=== PATIENT | female | born 1970 | race Caucasian/White ===

== ENCOUNTER 2025-08-31 19:13 | Inpatient (IN) ==
[2025-08-31 19:59] LABS: Alanine Aminotransferase 59.0 U/L (7-52); Albumin Globulin Ratio 1.5 (0.9-2); Albumin Level 4.1 gm/dl (3.4-5.0); Alkaline Phosphatase 128.0 U/L (34-104); Anion Gap 9.0 (3-11); Bilirubin,Total 0.5 mg/dl (0.2-1.0); Blood Urea Nitrogen 13.0 mg/dl (6-23); Calcium 8.8 mg/dl (8.6-10.3); Carbon Dioxide 23.0 mmol/L (21-32); Chloride 100.0 mmol/L (98-107); Creatinine Clr Calc Pharmacy 75.4 ml/min; Globulin 2.7 gm/dl (2.5-4.0); Glucose 98.0 mg/dl (70-99(Fasting)); Potassium 3.7 mmol/L (3.5-5.1); Sodium 132.0 mmol/L (136-145); Total Protein 6.8 gm/dl (6.0-8.3)
[2025-08-31 20:15] LABS: INR 1.1 (0.9-1.1); Partial Thromboplastin Time 29 Seconds (21-31); Prothrombin Time 11.5 Seconds (9.0-12.0)
[2025-08-31 20:22] LABS: Hematocrit (blood only) 25.8 % (37.0-47.0); Hemoglobin 9.0 g/dl (12.0-16.0); Mean Corpuscular Hemoglobin 29.5 pg (25.0-34.0); Mean Corpuscular Volume 84.6 fL (80.0-100.0); Platelet Count 334 K/uL (130-400); RDW Standard Deviation 55.7 fL (36.4-46.3); Red Blood Count 3.05 M/uL (4.20-5.40); White Blood Count 287.12 K/ul (4.8-10.8)
--- NOTE | 2025-08-31 20:23 | XRay Report ---
Chest radiograph, one view History: Chest pain Comparison: None Findings: Single AP view of the chest performed. No focal consolidation or pleural effusion. No pneumothorax. The cardiomediastinal silhouette is within normal limits. Normal pulmonary vascularity. No evidence for lymphadenopathy. No visualized bony or soft tissue abnormality. Impression: Normal chest radiograph Electronically signed by Sanchez Azar 08-31-2025 8:23 PM
[2025-08-31] MEDS: OPTIRAY 320 125ml IV ONE (20:42)
--- NOTE | 2025-08-31 22:26 | CT Scan Report ---
Exam(s): CTA CHEST EXAM: CT Angiography Chest With Intravenous Contrast CLINICAL HISTORY: ro PE. TECHNIQUE: Axial computed tomographic angiography images of the chest with intravenous contrast. CTDI is 29 mGy and DLP is 667.76 mGy-cm. Automated exposure control was utilized for the study. A dose lowering technique was utilized adhering to the principles of ALARA. 3D and MIP reconstructed images were created and reviewed. COMPARISON: CXR 08-31-2025. FINDINGS: Pulmonary arteries: No pulmonary embolism. Aorta: No thoracic aortic aneurysm or dissection. Lungs: Small peripheral infiltrate in the basilar left lower lobe. Minimal bilateral dependent atelectasis. Pleural space: No pleural effusion. No pneumothorax. Heart: No cardiomegaly. No pericardial effusion. No evidence of RV dysfunction. Bones/joints: No acute fracture. Postoperative changes of the lower cervical spine. Degenerative changes of the thoracic spine. Soft tissues: Unremarkable. Lymph nodes: Unremarkable. No enlarged lymph nodes. Abdomen: Small hiatal hernia. Gastric and small bowel postsurgical changes. Splenomegaly 15.6 cm length. IMPRESSION: No pulmonary embolism. Small peripheral infiltrate in the basilar left lower lobe. Small hiatal hernia. Splenomegaly. Electronically signed by: Alexis Douglass M.D. 08/31/25 22:25 PM
[2025-08-31] MEDS: AZITHROMYCIN 250 MG TAB PO ONE (22:57)
[2025-08-31] MEDS: cefTRIAXone SODIUM 2,000 MG/50 ML BAG IV STA (22:58)
--- NOTE | 2025-08-31 23:45 | History & Physical Report ---
Date of Service August 31, 2025 Assessment & Plan (1) Chest pain: (2) Leukocytosis: (3) Depression: Plan 55 yo female presenting with central chest discomfort that started earlier this evening. Troponin is unremarkable. EKG with no acute ischemic changes #Chest pain - EKG with no acute ischemic changes. Troponin unremarkable. No reproducible chest pain -Telemetry monitoring -Trend Troponin #Leukocytosis - elevated WBC count = 287.12. Per discussion with lab, differential mostly reveals immature granulocytes. Preliminary differential reveals 6 promyelocytes, 10 myelocytes, 9 metamyelocytes and 3 blasts. This will not be formally reviewed and validated until tomorrow. Case was discussed with Hematology - agreeable to admission here overnight pending pathology review -Admit to medical with telemetry -Awaiting formal pathology review of differential -Hematology consultation appreciated -Repeat CBC with differential in AM #Tooth infection -Continue Amoxicillin -Tylenol PRN -Ibuprofen PRN Lovenox for DVT prophylaxis Full Code History of Present Illness Chief Complaint: chest pain Primary Care Provider: NO PCP Caryl Blanton is a 55yo female with history of Depression/Anxiety presenting with left sided chest pain. Patient was at work this evening. Around 18:00 she developed acute left sided chest discomfort which was fairly severe in nature. No associated diaphoresis, shortness of breath, dizziness. She called her son and decided to come to the ER for further evaluation. Patient had a tooth break off several weeks ago. She is currently on Amoxicillin, Ibuprofen and Naproxen and planning to have the tooth extracted next week Patient has lost 7-14 pounds unintentionally during the last several weeks - thought due to decreased oral intake from her broken tooth. No fever, chills, night sweats No nausea, vomiting, abdominal pain She does have some easy bruising reported, possibly since being on the amoxicillin. She had a large box drop on her right arm several weeks ago and has a large hematoma from that which she reports is improving. No additional complaints Allergies Allergy/AdvReac Type Severity Reaction Status Date / Time tuberculin, purified protein Allergy SWELLING Verified 08/31/25 20:24 deriva Home Medications Medication Instructions Recorded Confirmed Type acetaminophen 500 mg tablet 1,000 mg PO Q8H PRN Pain ##0 03/21/10 08/31/25 History naproxen sodium 220 mg tablet 220 mg PO Q8H PRN Pain ##0 02/03/11 08/31/25 History (Aleve) amoxicillin 500 mg capsule 500 mg PO TID 08/31/25 08/31/25 History calcium carbonate (Calcium 600) 600 mg PO DAILY 08/31/25 08/31/25 History multivitamin 1 tab PO DAILY 08/31/25 08/31/25 History Past Med/Surg History Problem List Leukocytosis (Acute) Chest pain (Acute) Medical History Depression ADHD Surgical History S/P cervical spinal fusion History of gastric bypass Social History Smoking Status: Never smoker Preferred Language: Japanese Feels Safe at Home: Yes Review of Systems Review of Systems: All systems reviewed & are unremarkable except as noted in HPI & below Physical Exam Physical Exam: General: patient resting comfortably, NAD, non-toxic in appearance, AA&O x 4 Skin: warm, dry, intact, no rashes or lesions, large bruise LUE HEENT: NC/AT, PERRL, EOMI, anicteric sclera, conjunctiva without injection, external ear normal to inspection and nontender, nares patent, moist mucus membranes, dentition intact, no oropharyngeal lesions, neck supple, trachea midline, no LAD, no thyromegaly, no JVD Heart: +S1/S2, regular, no m/r/g Lungs: equal air entry bilaterally, no rales/rhonchi/wheezes Abd: +BS, soft, NT/ND, no masses/organomegaly/ascites Ext: warm, 2+ pulses in UE/LE bilaterally, no clubbing/cyanosis or edema Neuro: nonfocal, patient AA&O x 4, speech intact, no facial droop, moving all extremities on command with equal strength 5/5 Results & Data Results & Data Vital Signs (Past 12 Hours) Vital Signs Temp Pulse Pulse Resp BP BP Pulse Ox 08/31/25 20:23 82 08/31/25 20:19 88 16 150/75 H 96 08/31/25 20:19 97 08/31/25 19:15 36.2 C L 86 18 157/73 H 98 O2 Del Method 08/31/25 20:23 08/31/25 20:19 08/31/25 20:19 Room Air 08/31/25 19:15 Room Air Laboratory Results Laboratory Results WBC 287.12 K/ul (4.8-10.8) H* 08/31/25 19: RBC 3.05 M/uL (4.20-5.40) L 08/31/25 19:28 Hgb 9.0 g/dl (12.0-16.0) L 08/31/25 19:28 Hct 25.8 % (37.0-47.0) L 08/31/25 19: MCV 84.6 fL (80.0-100.0) 08/31/25 19: MCH 29.5 pg (25.0-34.0) 08/31/25 19: MCHC 34.9 g/dL (32.0-36.0) 08/31/25 19: RDW Std Deviation 55.7 fL (36.4-46.3) H 08/31/25 19: RDW Coeff of Leah 18.3 % (11.5-14.5) H 08/31/25 19: Plt Count 334 K/uL (130-400) 08/31/25 19: MPV 9.4 fL (9.4-12.4) 08/31/25 19: Absolute Nucleated RBC 3.79 K/uL (0.00-0.12) H 08/31/25: Nucleated RBC % (auto) 1.3 % 08/31/25 19:28 PT 11.5 Seconds (9.0-12.0) 08/31/25 19: INR 1.1 (0.9-1.1) 08/31/25 19: APTT 29 Seconds (21-31) 08/31/25: PTT Ratio 1.1 08/31/25 19:28 Sodium 132 mmol/L (136-145) L 08/31/25 19: Potassium 3.7 mmol/L (3.5-5.1) 08/31/25 19: Chloride 100 mmol/L (98-107) 08/31/25 19:28 Carbon Dioxide 23 mmol/L (21-32) 08/31/25 19: Anion Gap 9 (3-11) 08/31/25 19: BUN 13 mg/dl (6-23) 08/31/25 19: Creatinine 0.91 mg/dl (0.6-1.2) 08/31/25 19: Est Cr Clr Drug Dosing 75.4 ml/min 08/31/25 19: eGFR 74.04 08/31/25 19: BUN/Creatinine Ratio 14.3 (10-20) 08/31/25 19: Glucose 98 mg/dl (70-99(Fasting)) 08/31/25 19: Lactate 0.6 mmol/L (0.4-2.0) 08/31/25 21:00 Calcium 8.8 mg/dl (8.6-10.3) 08/31/25: Total Bilirubin 0.5 mg/dl (0.2-1.0) 08/31/25 19: AST 42 U/L (13-39) H 08/31/25 19: ALT 59 U/L (7-52) H 08/31/25 19: Alkaline Phosphatase 128 U/L (34-104) H 08/31/25 19: Troponin I High Sens 11.9 pg/ml (0-14) 08/31/25 19: Total Protein 6.8 gm/dl (6.0-8.3) 08/31/25 19: Albumin 4.1 gm/dl (3.4-5.0) 08/31/25 19: Globulin 2.7 gm/dl (2.5-4.0) 08/31/25 19: Albumin/Globulin Ratio 1.5 (0.9-2) 08/31/25 19: Procalcitonin 0.13 ng/ml (0-0.5) 08/31/25 19:28 Impressions Chest X-Ray 08/31/25 19:18 Chest radiograph, one view History: Chest pain Comparison: None Findings: Single AP view of the chest performed. No focal consolidation or pleural effusion. No pneumothorax. The cardiomediastinal silhouette is within normal limits. Normal pulmonary vascularity. No evidence for lymphadenopathy. No visualized bony or soft tissue abnormality. Impression: Normal chest radiograph Electronically signed by Sanchez Azar 08-31-2025 8:23 PM Chest CTA 08/31/25 20:30 Exam(s): CTA CHEST EXAM: CT Angiography Chest With Intravenous Contrast CLINICAL HISTORY: ro PE. TECHNIQUE: Axial computed tomographic angiography images of the chest with intravenous contrast. CTDI is 29 mGy and DLP is 667.76 mGy-cm. Automated exposure control was utilized for the study. A dose lowering technique was utilized adhering to the principles of ALARA. 3D and MIP reconstructed images were created and reviewed. COMPARISON: CXR 08-31-2025. FINDINGS: Pulmonary arteries: No pulmonary embolism. Aorta: No thoracic aortic aneurysm or dissection. Lungs: Small peripheral infiltrate in the basilar left lower lobe. Minimal bilateral dependent atelectasis. Pleural space: No pleural effusion. No pneumothorax. Heart: No cardiomegaly. No pericardial effusion. No evidence of RV dysfunction. Bones/joints: No acute fracture. Postoperative changes of the lower cervical spine. Degenerative changes of the thoracic spine. Soft tissues: Unremarkable. Lymph nodes: Unremarkable. No enlarged lymph nodes. Abdomen: Small hiatal hernia. Gastric and small bowel postsurgical changes. Splenomegaly 15.6 cm length. IMPRESSION: No pulmonary embolism. Small peripheral infiltrate in the basilar left lower lobe. Small hiatal hernia. Splenomegaly. Electronically signed by: Alexis Douglass M.D. 08/31/25 22:25 PM Code Status & VTE Plan VTE Prophylaxis Plan VTE Prophylaxis will be ordered: Yes PG Care Time/CCT Total # of Minutes Spent Total Time Spent with Patient: Total time spent is greater than 50% in coordination of care (as documented) at patient's floor/unit and/or counseling patient: Coding Level of Care Code 55380 INT INP/OBS CARE 3/75MIN Diagnoses Chest pain R07.9 Leukocytosis D72.829 Depression F32.A
[2025-09-01] MEDS ORDERED: ONDANSETRON INJ 2 MG/ML 2 ML VIAL IV PRN (00:23)
[2025-09-01] MEDS ORDERED: DOCUSATE SODIUM 100 MG CAP PO PRN (00:23)
--- NOTE | 2025-09-01 00:40 | Emergency Department Note ---
History of Present Illness General Chief Complaint: Chest Pain Stated Complaint: CHEST PAIN Time Seen by Provider: 08/31/25 20:23 History of Present Illness Provider Complaint: chest pain Time: 18:00 Onset: other (While at work) Pain Location: left chest Severity: mild Maximum Pain Intensity: 3 Current Pain Intensity: 1 Quality: + tightness, + aching, + heaviness and + dull Relieved By: + nothing Exacerbated By: + nothing Context: no recent illness, no recent surgery, no recent immobilization, no recent travel, no trauma/injury or no new medications Associated symptoms: no nausea, no vomiting, no diaphoresis, no dyspnea, no syncope, no palpitations, no fever, no cough or no leg swelling Home Medications Medication Instructions Recorded Confirmed Type acetaminophen 500 mg tablet 1,000 mg PO Q8H PRN Pain ##0 03/21/10 08/31/25 History naproxen sodium 220 mg tablet 220 mg PO Q8H PRN Pain ##0 02/03/11 08/31/25 History (Aleve) amoxicillin 500 mg capsule 500 mg PO TID 08/31/25 08/31/25 History calcium carbonate (Calcium 600) 600 mg PO DAILY 08/31/25 08/31/25 History multivitamin 1 tab PO DAILY 08/31/25 08/31/25 History Allergies Allergy/AdvReac Type Severity Reaction Status Date / Time tuberculin, purified protein Allergy SWELLING Verified 08/31/25 20:24 deriva Past Med/Surg History Problem List (Updated 09/01/25 @ 00:46 by Parish Erickson MD) Leukocytosis (Acute) Chest pain (Acute) Medical History Depression ADHD Surgical History S/P cervical spinal fusion History of gastric bypass Social History Smoking Status: Never smoker Preferred Language: Bahraini Feels Safe at Home: Yes Physical Exam Vital Signs Vital Signs - 24 hr 08/31/25 19:15 08/31/25 20:19 08/31/25 20:19 Temperature 36.2 C L Temperature Source Temporal Artery Scan Pulse Rate 86 Pulse Rate [Apical] 88 Respiratory Rate 18 16 Respiratory Effort / Characteristics Non-Labored Spontaneous Blood Pressure 157/73 H Blood Pressure [Right Arm] 150/75 H Blood Pressure Mean 101 Blood Pressure Mean [Right Arm] 100 Pulse Oximetry 98 97 96 Oxygen Delivery Method Room Air Room Air Sepsis Recent Fever Within 48 Hours No Sepsis New/Unexplained Change in Mental Status No Sepsis Action Taken by Nursing No Action Required 08/31/25 20:23 Temperature Temperature Source Pulse Rate 82 Pulse Rate [Apical] Respiratory Rate Respiratory Effort / Characteristics Blood Pressure Blood Pressure [Right Arm] Blood Pressure Mean Blood Pressure Mean [Right Arm] Pulse Oximetry Oxygen Delivery Method Sepsis Recent Fever Within 48 Hours Sepsis New/Unexplained Change in Mental Status Sepsis Action Taken by Nursing Physical Exam GENERAL: oriented to person, place, and time. appears well-developed and well- nourished. HENT: Exam performed. - Head: Normocephalic and atraumatic. EYES: Conjunctivae and EOM are normal. Right eye exhibits no discharge. Left eye exhibits no discharge. No scleral icterus. NECK: Normal range of motion. Neck supple. No JVD present. CV: Normal rate, regular rhythm, normal heart sounds and intact distal pulses. There is no peripheral edema. Palpable radial pulses bue. PULM/CHEST: Effort normal and breath sounds normal. No respiratory distress. No stridor. no wheezes. no rales. ABD: The abdomen is soft. There is no tenderness. NEURO: Motor and sensation grossly intact. SKIN: Skin is warm and dry. He is not diaphoretic. PSYCH: normal mood and affect. Behavior is normal. Judgment and thought content normal. Course Course 2022: The patient was evaluated in room C3. A complete history and physical exam was performed Cardiac monitoring: An order was placed for continuous cardiac monitoring. The monitor shows a rate of 80 with sinus rhythm interpreted by tn 2255: Vital signs stable. Labs show a leukocytosis of 287.12. Hemoglobin 9. Platelet count 334. Troponin negative. CT of the chest shows possible infiltrate but no PE or mass. Received a message from lab who states that the patient has immature cranial signs on peripheral smear with 6% neutrophils 2% lymphocytes 7% monocytes 1% eosinophils 3% basophils and 27% immature granulocytes. She states that pathology Dr. Trevizo will review the slide tomorrow. Will plan on admitting the patient for her chest pain as well as this unexplained leukocytosis with immature granulocytes. Patient treated empirically for possible community-acquired pneumonia with Rocephin and azithromycin. Discussed case with admitting team Dr. Downey who asked that we speak with hematology about the patient prior to admission. 2345: Vital signs stable. Spoke with Dr. Moy. Dr. Blood agrees that the patient can be admitted here until the patient's slide is reviewed by pathology Dr. Trevizo and states that he can evaluate the patient if necessary. Dr. Downey notified and will admit the patient. Administered Medications Discontinued Medications Azithromycin (Azithromycin 250 Mg Tab) 500 mg PO NOW ONE Stop: 08/31/25 22:44 Last Admin: 08/31/25 22:57 Dose: 500 mg Documented By: JOSE JUAN Ceftriaxone Sodium (Rocephin) 2,000 mg in 50 mls @ 100 mls/hr IV NOW STA Stop: 08/31/25 23:12 Last Infusion: 08/31/25 23:28 Dose: Infused Documented By: Admin: 08/31/25 22:58 Dose: 100 mls/hr Documented By: JOSE JUAN Ioversol (Optiray 320 125ml) 118 ml IV ONCE ONE Stop: 08/31/25 20:43 Last Admin: 08/31/25 20:42 Dose: 118 ml Documented By: HARPER Medical Decision Making Laboratory Data Attestation: I reviewed the patient's lab results. 08/31/25 19:28 08/31/25 19:28 Labs: Lab Results 08/31/25 08/31/25 Range/Units 19:28 21:00 WBC 287.12 H* (4.8-10.8) K/ul RBC 3.05 L (4.20-5.40) M/uL Hgb 9.0 L (12.0-16.0) g/dl Hct 25.8 L (37.0-47.0) % MCV 84.6 (80.0-100.0) fL MCH 29.5 (25.0-34.0) pg MCHC 34.9 (32.0-36.0) g/dL RDW Std Deviation 55.7 H (36.4-46.3) fL RDW Coeff of Leah 18.3 H (11.5-14.5) % Plt Count 334 (130-400) K/uL MPV 9.4 (9.4-12.4) fL Absolute Nucleated RBC 3.79 H (0.00-0.12) K/uL Nucleated RBC % (auto) 1.3 % PT 11.5 (9.0-12.0) Seconds INR 1.1 (0.9-1.1) APTT 29 (21-31) Seconds PTT Ratio 1.1 Sodium 132 L (136-145) mmol/L Potassium 3.7 (3.5-5.1) mmol/L Chloride 100 (98-107) mmol/L Carbon Dioxide 23 (21-32) mmol/L Anion Gap 9 (3-11) BUN 13 (6-23) mg/dl Creatinine 0.91 (0.6-1.2) mg/dl Est Cr Clr Drug Dosing 75.4 ml/min eGFR 74.04 BUN/Creatinine Ratio 14.3 (10-20) Glucose 98 (70-99(Fasting)) mg/dl Lactate 0.6 (0.4-2.0) mmol/L Calcium 8.8 (8.6-10.3) mg/dl Total Bilirubin 0.5 (0.2-1.0) mg/dl AST 42 H (13-39) U/L ALT 59 H (7-52) U/L Alkaline Phosphatase 128 H (34-104) U/L Troponin I High Sens 11.9 (0-14) pg/ml Total Protein 6.8 (6.0-8.3) gm/dl Albumin 4.1 (3.4-5.0) gm/dl Globulin 2.7 (2.5-4.0) gm/dl Albumin/Globulin Ratio 1.5 (0.9-2) Procalcitonin 0.13 (0-0.5) ng/ml Imaging Data Chest x-ray: Attestation: I personally reviewed and interpreted this imaging study as follows: My impression: Chest x-ray negative. Airway clear. No pneumothorax. No consolidation. No cardiomegaly or cephalization.. No free air under the diaphragm. No fractures of the skeletal structures. Radiologist's impression: Chest radiograph, one view History: Chest pain Comparison: None Findings: Single AP view of the chest performed. No focal consolidation or pleural effusion. No pneumothorax. The cardiomediastinal silhouette is within normal limits. Normal pulmonary vascularity. No evidence for lymphadenopathy. No visualized bony or soft tissue abnormality. Impression: Normal chest radiograph Electronically signed by Yanick Azarpavithrarima 08-31-2025 8:23 PM Dictated: 08/31/25 193 Transcribed: CT scan - chest: Radiologist's impression: Exam(s): CTA CHEST EXAM: CT Angiography Chest With Intravenous Contrast CLINICAL HISTORY: ro PE. TECHNIQUE: Axial computed tomographic angiography images of the chest with intravenous contrast. CTDI is 29 mGy and DLP is 667.76 mGy-cm. Automated exposure control was utilized for the study. A dose lowering technique was utilized adhering to the principles of ALARA. 3D and MIP reconstructed images were created and reviewed. COMPARISON: CXR 08-31-2025. FINDINGS: Pulmonary arteries: No pulmonary embolism. Aorta: No thoracic aortic aneurysm or dissection. Lungs: Small peripheral infiltrate in the basilar left lower lobe. Minimal bilateral dependent atelectasis. Pleural space: No pleural effusion. No pneumothorax. Heart: No cardiomegaly. No pericardial effusion. No evidence of RV dysfunction. Bones/joints: No acute fracture. Postoperative changes of the lower cervical spine. Degenerative changes of the thoracic spine. Soft tissues: Unremarkable. Lymph nodes: Unremarkable. No enlarged lymph nodes. Abdomen: Small hiatal hernia. Gastric and small bowel postsurgical changes. Splenomegaly 15.6 cm length. IMPRESSION: No pulmonary embolism. Small peripheral infiltrate in the basilar left lower lobe. Small hiatal hernia. Splenomegaly. Electronically signed by: Alexis Douglass M.D. 08/31/25 22:25 PM Dictated: 08/31/[id number] Transcribed: 08/31/252224 ECG Data Attestation: I personally reviewed and interpreted this ECG as follows: Rate (beats per minute): 86 Rhythm: normal sinus Findings: no ST depression, no ST elevation or no prolonged QT MDM Narrative 2022: The patient was evaluated in room C3. A complete history and physical exam was performed Cardiac monitoring: An order was placed for continuous cardiac monitoring. The monitor shows a rate of 80 with sinus rhythm interpreted by tn 2255: Vital signs stable. Labs show a leukocytosis of 287.12. Hemoglobin 9. Platelet count 334. Troponin negative. CT of the chest shows possible infiltrate but no PE or mass. Received a message from lab who states that the patient has immature cranial signs on peripheral smear with 6% neutrophils 2% lymphocytes 7% monocytes 1% eosinophils 3% basophils and 27% immature granulocytes. She states that pathology Dr. Trevizo will review the slide tomorrow. Will plan on admitting the patient for her chest pain as well as this unexplained leukocytosis with immature granulocytes. Patient treated empirically for possible community-acquired pneumonia with Rocephin and azithromycin. Discussed case with admitting team Dr. Downey who asked that we speak with hematology about the patient prior to admission. 2345: Vital signs stable. Spoke with Dr. Moy. Dr. Blood agrees that the patient can be admitted here until the patient's slide is reviewed by pathology Dr. Trevizo and states that he can evaluate the patient if necessary. Dr. Downey notified and will admit the patient. Impression & Plan Chest pain, Leukocytosis Discharge Plan Visit Data Chief Complaint: Chest Pain Stated Complaint: CHEST PAIN ED Provider: Parish Erickson Discharge Problem: Chest pain, Leukocytosis Patient Disposition: Admitted As Inpatient Condition: Fair Discharge Instructions Interventions: ED Discharge Assessment Last Done: 09/01/25 00:23
[2025-09-01 07:12] LABS: ALC (manual) 8.61 K/uL (1.2-3.4); ANC (manual) 114.85 K/uL (1.4-6.5); Blast # (manual) 2.87 K/uL (0-0)
[2025-09-01 07:13] LABS: Polychromasia 1+
[2025-09-01 07:51] LABS: Hematocrit (blood only) 25.4 % (37.0-47.0); Hemoglobin 8.5 g/dl (12.0-16.0); Mean Corpuscular Hemoglobin 28.4 pg (25.0-34.0); Mean Corpuscular Volume 84.9 fL (80.0-100.0); Platelet Count 306 K/uL (130-400); RDW Standard Deviation 55.2 fL (36.4-46.3); Red Blood Count 2.99 M/uL (4.20-5.40); White Blood Count 248.06 K/ul (4.8-10.8)
[2025-09-01] MEDS: AMOXICILLIN 500 MG CAP PO SCH (07:59)
[2025-09-01 08:07] LABS: Alanine Aminotransferase 53.0 U/L (7-52); Albumin Level 3.9 gm/dl (3.4-5.0); Alkaline Phosphatase 104.0 U/L (34-104); Anion Gap 7.0 (3-11); Bilirubin,Total 0.3 mg/dl (0.2-1.0); Blood Urea Nitrogen 10.0 mg/dl (6-23); Calcium 9.0 mg/dl (8.6-10.3); Carbon Dioxide 25.0 mmol/L (21-32); Chloride 111.0 mmol/L (98-107); Creatinine Clr Calc Pharmacy 108.4 ml/min; Glucose 75.0 mg/dl (70-99(Fasting)); Potassium 3.9 mmol/L (3.5-5.1); Sodium 143.0 mmol/L (136-145); Total Protein 6.1 gm/dl (6.0-8.3)
[2025-09-01 08:38] LABS: ALC (manual) 7.44 K/uL (1.2-3.4); ANC (manual) 151.32 K/uL (1.4-6.5); Blast # (manual) 4.96 K/uL (0-0); Polychromasia 1+; Tear Drop Cells 1+
[2025-09-01] MEDS ORDERED: MoRPHine SULFATE 4 MG/ML 1 ML CARP\\VIAL IV PRN (11:09)
[2025-09-01 11:15] LABS: Chlamydia pneumoniae PCR Not Detected (NotDetected); Coronavirus 229E PCR Not Detected (NotDetected); Coronavirus CoV-2 (COVID19)PCR Not Detected (NotDetected); Coronavirus HKU1 PCR Not Detected (NotDetected); Coronavirus NL63 PCR Not Detected (NotDetected); Coronavirus OC43PCR Not Detected (NotDetected); Human Metapneumovirus PCR Not Detected (NotDetected); Parainfluenza Virus 1 PCR Not Detected (NotDetected); Parainfluenza Virus 2 PCR Not Detected (NotDetected); Parainfluenza Virus 3 PCR Not Detected (NotDetected); Parainfluenza Virus 4 PCR Not Detected (NotDetected); Respiratory Syncytial VirusPCR Not Detected (NotDetected); Rhinovirus/Enterovirus PCR Not Detected (NotDetected)
[2025-09-01] MEDS: cefTRIAXone SODIUM 2,000 MG/50 ML BAG IV SCH (11:51)
[2025-09-01 11:57] LABS: Reticulocytes # 0.100 10^6/uL (0.020-0.100)
[2025-09-01] MEDS: OPTIRAY 320 100ml IV ONE (12:32)
--- NOTE | 2025-09-01 12:36 | Oncology Consultation ---
Date of Consultation September 01, 2025 Assessment & Plan (1) Leukocytosis: Given the severely elevated blast cells in the peripheral blood, significant leukocytosis, significant anemia, the patient most likely has acute leukemia. At this point I will recommend a referral to a tertiary center such as [facility] or [facility] so that the patient can be appropriately worked up including a bone marrow biopsy and can start induction therapy if we confirm acute leukemia. Recommend a referral to a tertiary center given that the provisional diagnosis is acute leukemia Plan Thank you for this interesting hematological consult. Hematology will continue to follow the patient make appropriate recommendations. History of Present Illness Reason for Consultation: Leukocytosis significant anemia Attending Physician: Julien Brambila MD, PhD History of Present Illness the patient is a very pleasant 55-year-old woman who initially presented to [facility] with severe leukocytosis, neutrophilia, basophilia. There are blast cells in the peripheral blood. Hematology has been consulted to assist in management of this patient with presumed acute leukemia given the severity of white cells. Allergies Allergy/AdvReac Type Severity Reaction Status Date / Time tuberculin, purified protein Allergy SWELLING Verified 08/31/25 20:24 deriva Home Medications Medication Instructions Recorded Confirmed Type acetaminophen 500 mg tablet 1,000 mg PO Q8H PRN Pain ##0 03/21/10 08/31/25 History naproxen sodium 220 mg tablet 220 mg PO Q8H PRN Pain ##0 02/03/11 08/31/25 History (Aleve) amoxicillin 500 mg capsule 500 mg PO TID 08/31/25 08/31/25 History calcium carbonate (Calcium 600) 600 mg PO DAILY 08/31/25 08/31/25 History multivitamin 1 tab PO DAILY 08/31/25 08/31/25 History Patient History Medical History Depression ADHD Surgical History S/P cervical spinal fusion History of gastric bypass Social History Smoking Status: Never smoker Hx Alcohol Use: Yes Hx Substance Use: No Preferred Language: Monegasque Communication Ability: Effective Election Supervisor Required: No Beliefs That Will Affect Care: None Current Living Situation: Alone Other Information That Helps Us Care for You: No Feels Safe at Home: Yes Safety Concerns: Feels Safe At This Time Assistive Devices: Crutches and Walker Review of Systems Review of Systems: All systems reviewed & are unremarkable except as noted in HPI & below Constitutional: as per Subjective / HPI Eyes: as per Subjective / HPI Ear, Nose, Mouth, Throat: as per Subjective / HPI Respiratory: as per Subjective / HPI Cardiovascular: as per Subjective / HPI Gastrointestinal: as per Subjective / HPI Genitourinary: as per Subjective / HPI Musculoskeletal: as per Subjective / HPI Integumentary: as per Subjective / HPI Neurologic: as per Subjective / HPI Psychiatric: as per Subjective / HPI Endocrine: as per Subjective / HPI Hematologic / Lymphatic: as per Subjective / HPI Allergy / Immunological: as per Subjective / HPI Physical Exam Constitutional: WD/WN, vitals as above Eyes: PERRL, conjunctivae normal, anicteric sclerae ENMT: external ear and nose normal, oropharynx normal Neck: trachea midline, no thyromegaly Respiratory: normal respiratory effort, lungs clear to auscultation Cardiovascular: RRR, no murmur, no edema Gastrointestinal (Abdomen): normal bowel sounds, soft, nontender, no hepatosplenomegaly Musculoskeletal: no cyanosis or clubbing, extremities motor strength 5/5 Skin: no rashes, warm and dry Neurologic: patellar DTR's 2+ bilat, sensation intact Psychiatric: A+Ox3, euthymic affect Results & Data Vital Signs (Past 12 Hours) Vital Signs Temp Pulse Pulse Resp BP Pulse Ox O2 Del Method 09/01/25 10:58 36.5 C 80 18 168/65 H 96 Room Air 09/01/25 07:48 Room Air 09/01/25 07:29 36.6 C 80 18 146/77 H 97 Room Air 09/01/25 07:00 70 09/01/25 04:57 72 09/01/25 04:45 36 C L 74 14 138/78 98 Room Air 09/01/25 04:00 72 16 127/72 93 Room Air 09/01/25 03:30 69 16 151/74 H 97 Room Air 09/01/25 01:53 76
--- NOTE | 2025-09-01 12:42 | Electrocardiogram Report ---
Test Reason : Blood Pressure : */* mmHG Vent. Rate : 86 BPM Atrial Rate : 86 BPM P-R Int : 150 ms QRS Dur : 86 ms QT Int : 368 ms P-R-T Axes : 46 0 44 degrees QTcB Int : 440 ms Normal sinus rhythm Normal ECG When compared with ECG of 01-Oct-2011 10:14, No significant change Confirmed by Michael Us ([id number]) on 09/01/2025 12:41:48 PM Referred By: REFERRED SELF Confirmed By: Michael Us
--- NOTE | 2025-09-01 12:54 | CT Scan Report ---
CT SCAN OF THE BRAIN WITH IV CONTRAST CLINICAL HISTORY: Dental caries. COMPARISON STUDY: No priors TECHNIQUE: CT scan of the brain is performed from the vertex to the skull base following the IV admin istration 94 cc of Optiray 320. Images are reviewed in the axial, sagittal, and coronal planes. IV c ontrast was administered without complication. A dose lowering technique was utilized adhering to the principles of ALARA. FINDINGS: Brain parenchyma: The brain parenchyma is normal in appearance. There is no evidence of hemorrhage, m ass effect, or acute territorial ischemia by CT criteria. Godoy-white matter differentiation is preser danish. No extra-axial fluid collection is seen. There is no evidence of enhancing lesion. Ventricles, sulci, cisterns: Normal in configuration. Intracranial vasculature: There is mild atherosclerotic calcification of the cavernous carotid arteri es. The intracranial vessels are patent as imaged. Calvarium: Unremarkable. Sinuses and mastoids: The visualized paranasal sinuses are clear. The mastoid air cells are well pneu matized. Orbits: The bony orbits are grossly intact. IMPRESSION: 1. No acute intracranial abnormality is identified. Note that assessment for hemorrhage is significan tly degraded by the presence of IV contrast. 2. Note that periodontal disease is not assessed by head CT (anatomy not included). For evaluation o f periodontal disease a facial bone CT would be appropriate. ACT 112: Negative or not required by law. Electronically signed by: Jarett Parrish M.D. 09/01/2025 12:53 PM
--- NOTE | 2025-09-01 13:14 | CT Scan Report ---
ABDOMEN AND PELVIS CT WITH IV CONTRAST CT DOSE: 2226.78 mGy.cm HISTORY: Acute onset abdominal pain eval for mass, lymphadenopathy TECHNIQUE: Multiaxial CT images of the abdomen and pelvis were performed following the IV administrat ion of 90 cc of Optiray, A dose lowering technique was utilized adhering to the principles of ALARA. COMPARISON STUDY: CT chest 08/31/2025 FINDINGS: Nodular foci within the basal left lower lobe measuring up to 11 mm are stable. Mild left b asilar mucous plugging and bronchiectasis again noted. No pneumatosis or pneumoperitoneum. The spleen is enlarged measuring up to 22.6 cm in length. Unremarkable pancreas, gallbladder, adrenal glands an d liver. The portal vein appears patent. Unremarkable kidneys. No hydronephrosis. Uterus is within no rmal limits. Mild atherosclerosis of the aorta without aneurysm. Tiny hiatal hernia. Postoperative changes of Herrera-en-Y gastric bypass. There is mild wall thickening with adjacent inflammatory stranding involving the gastric jejunal anastomosis. Trace nonspecific maueren e pelvic fluid. Normal appendix. Numerous stool-filled loops of small bowel noted within the abdomen and pelvis. No acute fracture. Unremarkable soft tissues. IMPRESSION: 1. Postoperative changes of prior Herrera-en-Y gastric bypass. There is mild wall thickening with trace adjacent inflammatory stranding involving the gastrojejunal anastomosis suggestive of an infectious o r inflammatory process. 2. No bowel obstruction or pneumoperitoneum. 3. Splenomegaly. 4. No lymphadenopathy identified. ACT 112: Negative or not required by law. The above report was generated using voice recognition software. It may contain grammatical, syntax o r spelling errors. Electronically signed by: Gab Dillard M.D. 09/01/2025 1:12 PM
[2025-09-01] MEDS: ACETAMINOPHEN 500 MG TAB PO PRN (14:54)
[2025-09-01] MEDS: IBUPROFEN 600 MG TAB PO PRN (14:55)
--- NOTE | 2025-09-01 17:45 | Discharge Summary ---
Discharge Summary Date of Service September 01, 2025 Principal Dx & Hospital Course #1 = Principal Diagnosis (1) Chest pain: s/p BAILEE with troponin-I #1 11.9 pg/mL (08/31/2025, 7:28pm), troponin-I #2 13.4 pg/mL (09/01/2025, 1:02am), troponin-I #3 6.2 pg/mL (09/01/2025, 6:52am). cf., EKG (08/31/2025, 7:22pm): NSR @ 86, NC 150, QTC 440, no acute ST depressions/elevations, TWI, or q waves (by my review). Etiology of substernal chest pressure remains unclear, but was NOT due to acute NSTEMI or ACS. Instead, patient appears to be in the midst of an acute leukemia: cf., WBC 287.12, N40 L3 M6 E1 B4 metamyelocytes 19, myelocytes 22, promyelocytes 4, blast cells 1 (08/31/2025, 7:28pm). cf., WBC 248.06, N61 L3 M4 E1 B1 metamyelocytes 13, myelocytes 14, promyelocytes 1, blast cells 2 (09/01/2025, 6:52am). To this end, patient is being transferred from [facility] inpatient Hospitalist Service to [facility] inpatient Hospitalist Service on 09/11/2025 to undergo bone marrow biopsy to confirm the suspected diagnosis of acute leukemia, understanding that [facility] does not perform bone marrow biopsy or treat acute leukemia patients. (2) Leukocytosis: See bullet #1 above. (3) Depression: Asymptomatic. No suicidal ideation. No homicidal ideation. Not on any anti- depressants at home or in [facility]. (4) Caries involving multiple surfaces of tooth: Right mandibular molar caries. Right maxillary molar caries. No suppuration, no sanguineous/serous discharge. No malodor. No gum recession. No ulceration. s/p amoxicillin 500mg PO tid x 2 months without clinical improvement, no fevers, chills, suppuration. Patient awaits CT facial bones with/without IV contrast (09/01/2025, 5:40pm) to evaluate patient for possible tooth abscess(es) in the right mandibular molar caries and/or right maxillary molar caries. In the interim, as patient reports no pain in the right mandibular/maxillary region on 09/01/2025, I have opted to hold off empiric antibiotics (IV or oral) and I have also opted to D/C patient's home-scheduled amoxicillin 500mg PO tid, which the patient reports having taken for the past 2 months on a regular basis, and without any clinical improvement. Of note, patient reports that she is tentatively scheduled to undergo right mandibular molar extraction on Friday (09/06/2025) with [facility] Dentist Dr. Jhoan Noble ([address] [place] [id number]). Of note, patient reports that she is tentatively scheduled to undergo right maxillary molar root canal at a future date to be determined by [facility] Dentist Dr. Jhoan Noble ([address] [place] [id number]). Plan 55 yo female presenting with central chest discomfort that started earlier this evening. Troponin is unremarkable. EKG with no acute ischemic changes #Chest pain - EKG with no acute ischemic changes. Troponin unremarkable. No reproducible chest pain -Telemetry monitoring -Trend Troponin #Leukocytosis - elevated WBC count = 287.12. Per discussion with lab, differential mostly reveals immature granulocytes. Preliminary differential reveals 6 promyelocytes, 10 myelocytes, 9 metamyelocytes and 3 blasts. This will not be formally reviewed and validated until tomorrow. Case was discussed with Hematology - agreeable to admission here overnight pending pathology review -Admit to medical with telemetry -Awaiting formal pathology review of differential -Hematology consultation appreciated -Repeat CBC with differential in AM #Tooth infection -Continue Amoxicillin -Tylenol PRN -Ibuprofen PRN Lovenox for DVT prophylaxis Full Code Admission HPI Per Admitting Provider Caryl Blanton is a 55yo female with history of Depression/Anxiety presenting with left sided chest pain. Patient was at work this evening. Around 18:00 she developed acute left sided chest discomfort which was fairly severe in nature. No associated diaphoresis, shortness of breath, dizziness. She called her son and decided to come to the ER for further evaluation. Patient had a tooth break off several weeks ago. She is currently on Amoxicillin, Ibuprofen and Naproxen and planning to have the tooth extracted next week Patient has lost 7-14 pounds unintentionally during the last several weeks - thought due to decreased oral intake from her broken tooth. No fever, chills, night sweats No nausea, vomiting, abdominal pain She does have some easy bruising reported, possibly since being on the amoxicillin. She had a large box drop on her right arm several weeks ago and has a large hematoma from that which she reports is improving. No additional complaints Discharge Exam Constitutional General: Comfortable, cooperative and coherent. Wide awake and alert. Not confused, lethargic, or obtunded. Patient speaks in complete, fluent, and articulate sentences, without pause, interruption, cough, or wheeze. HEENT: NC/AT. EOMI. PERRL. No diplopia, homonymous hemianopsia, superior/inferior/nasal/temporal quadrantanopia, nystagmus, gaze paresis, anisocoria, miosis, mydriasis, chemosis, hyphema, scleral injection, conjunctivitis, pterygium, facial droop, dysarthria, or pronator drift. No otorrhea. No rhinorrhea. Right mandibular molar caries. Right maxillary molar caries. No suppuration, no sanguineous/serous discharge. No malodor. No gum recession. No ulceration. Neck: Supple, no stridor, bruit, or goiter. Jugular venous pressure 3 cm above the sternal angle of Gilberto, which is typically 5 cm above the right atrium. Lymph: No anterior/posterior cervical lymphadenopathy, supraclavicular/infraclavicular lymphadenopathy, axilla/epitrochlear/inguinal lymphadenopathy. Chest: Symmetric rise and fall with respirations. Non-tender to palpation. Heart: RRR, S1 and S2. No S3 or S4 summation gallop. No tripartite friction rub. No murmur. Lungs: Clear to auscultation and percussion. No audible expiratory wheeze, egophony, pectoriloquy, increase in tactile fremitus, or flatness/dullness to pe rcussion at the bases. Abd: Soft, non-tender, non-distended. Bowel sounds auscultated in all 4 quadrants. No rebound, guarding, Hart's sign, or organomegaly. Ext: No clubbing, cyanosis, or edema. 2+ pedal pulses bilaterally. Skin: No decubitus ulcer or enanthem or exanthem. Neuro: Alert and oriented in regards to person, place, time, and situation. No tremors, tics, or myoclonus. DTR+. 5/5 motor strength in all 4 extremities, both proximally and distally. Urology: No mcdonald catheter. No purewick. No urethral discharge. Discharge Plan Discharge Items Patient Disposition: Transfer Acute Care Hospital Reason For Visit: CHEST PAIN, LEUKOCYTOSIS Discharge Diagnosis: 1. Acute leukemia. 2. Substernal chest pain, s/p BAILEE with troponin-I #1 11.9 pg/mL (08/31/2025, 7:28pm), troponin-I #2 13.4 pg/mL (09/01/2025, 1:02am), troponin-I #3 6.2 pg/mL (09/01/2025, 6:52am). 3. Chronic right maxillary/mandibular caries, R/O tooth abscess(es), s/p amoxicillin 500mg PO tid x 2 months without clinical improvement, no fevers, chills, suppuration. Condition on Discharge: Fair Activity: Resume your previous activity Lifting: Gradually increase as tolerated Bathing: No limitations Exercise/Sports: Gradually increase as tolerated Driving/Machine Use: No limitations Weightbearing: Full weightbearing Non-emergency contact: Primary Care Provider Call non-emergency contact if: you have any medication questions Follow-up/Referrals: PCP,NO [Primary Care Provider] - Diet: Heart Healthy Addtl Attending Provider Instructions: See your PCP within 5-7 days of hospital discharge. Pending Studies at Discharge: Yes Studies:: CT facial bones with/without IV contrast (09/01/2025, 5:40pm): (eval for R mandibular/maxillary abscess(es). Stand-Alone Forms: My [facility] Skilled Items Patient informed of condition?: Yes DNR: No Discharge Level of Care: Other Communicable Disease: No Discharge Prognosis: Stable Lines: None Urinary Catheter: No Medications and DC Order Prescriptions: Discontinued acetaminophen 500 mg Tablet 1,000 mg PO Q8H PRN (Reason: Pain) Qty: 0 naproxen sodium [Aleve] 220 mg Tablet 220 mg PO Q8H PRN (Reason: Pain) Qty: 0 multivitamin Tablet 1 tab PO DAILY amoxicillin 500 mg capsule 500 mg PO TID Rx Instructions: FOR 10 DAYS calcium carbonate [Calcium 600] 600 mg calcium (1,500 mg) Tablet 600 mg PO DAILY Discharge Orders: Discharge Order (Routine); Ordered 09/01/25 Ordered By: Julien Brambila Admission Data Admit Date/Time: 08/31/25 23:44 Attending Provider: Julien Brambila Admit Provider: Emily Downey Primary Care Provider: PCP,NO Other Providers: Emily Downey; [facility] Stay Data Consultations 08/31/25 22:44 ED Decision to Admit Stat 08/31/25 23:44 Consult Hematology Routine Diagnostic Imagining Performed 08/31/25 20:30 CT angio chest PE protocol Stat 09/01/25 10:55 CT abd pelvis IV con only Stat CT head/brain w con Stat 09/01/25 17:40 CT facial bones wo/w con Stat Pending Results Patient Have Any Pending Studies at Discharge: Yes Discharge Instructions Given to Patient (Per Discharging Provider) See your PCP within 5-7 days of hospital discharge. Total Time Total Time Spent Total Time Spent (In Minutes): 35 minutes. Of this time period, 19 minutes were spent in coordinating patient's discharge. Coding Level of Care Code 40832 INP/OBS DISCH >30 MIN Diagnoses Chest pain R07.9 Leukocytosis D72.829 Depression F32.A Caries involving multiple surfaces of tooth K02.9
[2025-09-01] MEDS: ENOXAPARIN INJ 40 MG/0.4 ML SYR SQ SCH (21:06)
== END 2025-09-01 22:20 | disposition short-term general hospital (02) | DRG 842 ==
LOC: SUATTDRO → ED 19:13 → SUATTDRO 23:44 → EDINP 23:44 → 2S 09-01 00:23